=== PATIENT | female | born 1960 | race American Indian/Alaskan Native ===

== ENCOUNTER 2017-01-12 11:27 | Emergency (ER) | payer BC ==
--- NOTE | 2017-01-12 11:42 | Emergency Department Report ---
ED Altered Mental Status HPI - General Stated Complaint: AMS Time Seen by Provider: 01/12/17 11:32 Source: patient, EMS Mode of arrival: Stretcher Limitations: No Limitations - History of Present Illness Initial Comments: 56-year-old female the past medical history of lupus, htn, non-insulin dependent diabetes and breast cancer currently on oral chemotherapy pill daily since week presents to the hospital with complaints of alteration in mental status. 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 She was given sugary fluids to drink and remained confused upon EMS arrival. Upon arrival patient is alert and oriented 3 and at baseline as per her friends and family. Patient denies any symptoms. Please take metformin 1000 mg twice a day last dose last night. Patient ate breakfast around 5:30 AM but skipped her 10:30 lunch. She denies infectious symptoms including fever, cough , nausea, vomiting, diarrhea, or dysuria. - Related Data Allergies Allergy/AdvReac Type Severity Reaction Status Date / Time No Known Allergies Allergy Verified 01/12/17 12:17 ED Review of Systems ROS: Stated complaint: AMS Other details as noted in HPI Comment: All other systems reviewed and negative Other: Constitutional: No fevers chills Eyes: No eye pain visual changes ENT: No ear pain or throat pain Neck: Denies pain Respiratory: Denies cough wheezing shortness of breath Cardiovascular: Denies chest pain, palpitations, syncope GI: Denies abdominal pain, nausea, vomiting, diarrhea : Denies dysuria Musculoskeletal: Denies back marian Skin: Denies rash, lesions, erythema Neurologic: Denies headache, numbness, weakness Psychiatric: Denies suicidal ideation, hallucinations ED Past Medical Hx - Past Medical History Hx Hypertension: Yes Hx Diabetes: Yes Hx of Cancer: Yes (breast currently on oral chemotherapy ) Additional medical history: Lupus ED Physical Exam - Other Other exam information: General: No limitations, patient is alert in no acute distress Head exam: Atraumatic, normocephalic Eyes exam: Normal appearance, pupils equal reactive to light, extraocular movements intact, visual galan intact ENT: Moist mucous membrane, normal oropharynx Neck exam: Normal inspection, full range of motion, no meningismus nontender Respiratory exam: Clear to auscultation bilateral, no wheezes, rales, crackles Cardiovascular: Normal rate and rhythm, normal heart sounds Abdomen: Soft, nondistended, and nontender, with normal bowel sounds, no rebound, or guarding Extremity: Full range of motion normal inspection no deformity Back: Normal Inspection, full range of motion, no tenderness Neurologic: Alert, oriented x3, cranial nerves intact, no motor or sensory deficit, [id number] function intact. NIH stroke scale 0 Psychiatric: normal affect, normal mood Skin: Warm, dry, intact - Assessment Assessment Interval: Baseline - LOC Questions 1b. LOC Questions: answers correctly - LOC Command 1c. LOC Commands: performs tasks correctly - Best Gaze 2. Best Gaze: normal - Visual 3. Visual: no visual loss - Facial Palsy 4. Facial Palsy: normal symmetrical movement - Motor Arm 5b. Motor Arm Right: no drift 5a. Motor Arm Left: no drift - Motor Leg 6a. Motor Leg Left: no drift 6b. Motor Leg Right: no drift - Limb Ataxia 7. Limb Ataxia: absent - Sensory 8. Sensory: normal - Best Language 9. Best Language: no aphasia - Dysarthria 10. Dysarthria: normal - Extinction and Inattention 11. Extinction/Inattention: no abnormality ED Course Vital Signs 01/12/17 12:21 Temperature 98.3 F Pulse Rate 89 Respiratory 16 Rate Blood Pressure 115/78 O2 Sat by Pulse 98 Oximetry - Reevaluation(s) Reevaluation #1: 01/12/17 12:46 Patient was at the sign out against medical administrative technician. Her family member is a RN and states she will continue to watch her. - Lab Data Result diagrams: 01/12/17 11:57 01/12/17 11:57 Lab Results 01/12/17 01/12/17 01/12/17 Range/Units 11:57 11:57 11:57 WBC 4.4 L (4.5-11.0) K/mm3 RBC 4.86 (3.65-5.03) M/mm3 Hgb 13.2 (10.1-14.3) gm/dl Hct 42.1 (30.3-42.9) % MCV 87 (79-97) fl MCH 27 L (28-32) pg MCHC 31 (30-34) % RDW 13.4 (13.2-15.2) % Plt Count 223 (140-440) K/mm3 Lymph % (Auto) 37.7 H (13.4-35.0) % [place] % (Auto) 6.6 (0.0-7.3) % Eos % (Auto) 0.3 (0.0-4.3) % Baso % (Auto) 0.4 (0.0-1.8) % Lymph # 1.7 (1.2-5.4) K/mm3 [place] # 0.3 (0.0-0.8) K/mm3 Eos # 0.0 (0.0-0.4) K/mm3 Baso # 0.0 (0.0-0.1) K/mm3 Seg Neutrophils % 55.0 (40.0-70.0) % Seg Neutrophils # 2.4 (1.8-7.7) K/mm3 PT 13.8 (12.2-14.9) Sec. INR 1.01 (0.87-1.13) APTT 31.1 (24.2-36.6) Sec. Sodium 138 (137-145) mmol/L Potassium 3.4 L (3.6-5.0) mmol/L Chloride 97.7 L (98-107) mmol/L Carbon Dioxide 22 (22-30) mmol/L Anion Gap 22 mmol/L BUN 15 (7-17) mg/dL Creatinine 0.5 L (0.7-1.2) mg/dL Estimated GFR > 60 ml/min BUN/Creatinine Ratio 30 % Glucose 146 H (65-100) mg/dL Calcium 9.2 (8.4-10.2) mg/dL - EKG Data -: EKG Interpreted by Me (pt refused ekg) - Medical Decision Making Patient left the department prior to her lab results. Potassium came back at 3.4. I did to [facility] to inform patient to eat bananas increased potassium level. First time wishes after arrival at this several hours later. Both times it was a busy signal so therefore I suspect the malfunctioning number Ct head, ekg, Ua refused Critical Care Time: No Critical care attestation.: If time is entered above; I have spent that time in minutes in the direct care of this critically ill patient, excluding procedure time. ED Disposition Clinical Impression: Awareness alteration, transient, Hypoglycemia associated with diabetes, Hypokalemia Disposition: LEFT AGAINST MED ADVICE Is pt being admited?: No Condition: Stable Instructions: Diabetic Hypoglycemia (ED), Altered Mental Status (ED) Additional Instructions: You have refused further workup in the ER to evaluate for infection, stroke, or other cause of altered mental status. Your lab work is pending. You have also refused EKG and CAT scan of your head. Your symptoms were likely due to low blood sugar secondary to skipping your lunch today. However, we do not have a glucose level confirming low blood sugar. Continue to eat appropriately today and monitoring your sugar. Follow-up with your doctor. Return if symptoms worsen. Referrals: PRIMARY CARE, [Primary Care Provider] - 3-5 Days Forms: AMA Form Time of Disposition: 12:35 (ama)
[2017-01-12 12:17] LABS: Basophils % (Auto) 0.4 % (0.0-1.8); Eosinophils % (Auto) 0.3 % (0.0-4.3); Hematocrit 42.1 % (30.3-42.9); Hemoglobin 13.2 gm/dl (10.1-14.3); Mean Corpuscular HGB Conc 31 % (30-34); Mean Corpuscular Hemoglobin 27 pg (28-32); Mean Corpuscular Volume 87 fl (79-97); Platelet Count 223 K/mm3 (140-440); Red Blood Count 4.86 M/mm3 (3.65-5.03); Red Cell Distribution Width 13.4 % (13.2-15.2); White Blood Count 4.4 K/mm3 (4.5-11.0)
[2017-01-12 12:33] LABS: INR 1.01 (0.87-1.13)
[2017-01-12 12:34] VITALS: BP 115/78
[2017-01-12 12:34] LABS: Partial Thromboplastin Time 31.1 Sec. (24.2-36.6)
[2017-01-12 12:39] LABS: Anion Gap 22 mmol/L; BUN/Creatinine Ratio 30; Blood Urea Nitrogen 15 mg/dL (7-17); Calcium 9.2 mg/dL (8.4-10.2); Carbon Dioxide 22 mmol/L (22-30); Chloride 97.7 mmol/L (98-107); Glucose 146 mg/dL (65-100); Potassium 3.4 mmol/L (3.6-5.0); Sodium 138 mmol/L (137-145)
== END 2017-01-12 12:49 | disposition left against medical advice (07) ==
LOC: ED 11:27
DX: E11.649 Type 2 diabetes mellitus with hypoglycemia without coma (principal); E87.6 Hypokalemia; I10 Essential (primary) hypertension; M32.9 Systemic lupus erythematosus, unspecified; C50.919 Malignant neoplasm of unspecified site of unspecified female breast; Z79.899 Other long term (current) drug therapy
CPT/HCPCS: 36415; 80048; 85025; 85610; 85730; 99283